=== PATIENT | female | born 2005 | race Caucasian/White ===

== ENCOUNTER 2025-01-26 06:31 | Day surgery (SDC) | payer BC ==
[2025-01-26] MEDS ORDERED: Midazolam 1 MG/ML 2 ML SDV ONE (07:03)
[2025-01-26] MEDS ORDERED: Propofol 200 MG/20 ML SDV ONE (07:03)
[2025-01-26] MEDS ORDERED: fentaNYL 100 MCG/2 ML SDV ONE (07:03)
[2025-01-26] MEDS: Lactated Ringers 1,000 ML IV SCH (07:18)
== END 2025-01-26 09:50 | disposition home or self-care (01) ==
LOC: JP.SDS 06:31
PROVIDERS: ATTEND Surgery
DX: K63.89 Other specified diseases of intestine (principal); K92.2 Gastrointestinal hemorrhage, unspecified
CPT/HCPCS: 00811; 45380; 81025; 88305; 88312; J2250; J2704; J3010; J7120